=== PATIENT | male | born 1985 | race Hispanic/Latino ===

== ENCOUNTER 2017-06-09 15:28 | Emergency (ER) | payer MEDICAID ==
[2017-06-09 15:44] VITALS: BP 125/90; PULSE 84; RESP 16; O2SAT 98
--- NOTE | 2017-06-09 16:08 | ED PDOC ---
HPI: Psych/Substance Abuse Time Seen by Provider: 06/09/17 15:31 Chief Complaint (Nursing): Psychiatric Evaluation Chief Complaint (Provider): Crisis eval History Per: Patient Additional Complaint(s): 32 yo male, reports a PMH of depression and anxiety, presents to ED calm and cooperative at this time stating he is feeling depressed. Patient also hearing voices, but unsure what they are saying. Patient states he feel like people are after him, and reports that he has not been able to eat or sleep because people have been "messing" with him. Reports intermittent suicidal ideations. Patient hasn't taken his psych medications (unknown names) for "a few years." Pt denies any physical complaints at this time. Denies any homicidal ideations. Past Medical History Reviewed: Nursing Documentation, Vital Signs Vital Signs: Last Vital Signs Temp 9832 F H 06/09/17 15:40 Pulse 84 06/09/17 15:40 Resp 16 06/09/17 15:40 BP 125/90 06/09/17 15:40 Pulse Ox 98 06/09/17 15:40 - Medical History PMH: Anxiety, Back Problems, Depression Denies: Diabetes, Hepatitis, HIV, HTN, Chronic Kidney Disease, Seizures, Sexually Transmitted Disease - Family History Family History: States: Unknown Family Hx - Living Arrangements Living Arrangements: Other - Social History Current smoker - smoking cessation education provided: No Alcohol: Social Drugs: Cannabis, Cocaine, Opiates, Prescription medications - Immunization History Hx Tetanus Toxoid Vaccination: No Hx Influenza Vaccination: No Hx Pneumococcal Vaccination: No - Home Medications Home Medications: Ambulatory Orders Medication Instructions Recorded Polyethylene Glycol 3350 [Miralax] 17 gm PO DAILY #270 ml 08/03/16 - Allergies Allergies/Adverse Reactions: Allergies Allergy/AdvReac Type Severity Reaction Status Date / Time No Known Allergies Allergy Verified 06/09/17 15:40 Review of Systems ROS Statement: Except As Marked, All Systems Reviewed And Found Negative Psych: Positive for: Depression, Suicidal ideation, Other (auditory hallucinations) Physical Exam - Reviewed Nursing Documentation Reviewed: Yes Vital Signs Reviewed: Yes - Physical Exam Appears: Positive for: Well, Non-toxic, No Acute Distress Head Exam: Positive for: ATRAUMATIC, NORMAL INSPECTION, NORMOCEPHALIC Skin: Positive for: Normal Color, Warm, DRY Eye Exam: Positive for: EOMI, Normal appearance, PERRL ENT: Positive for: Normal ENT Inspection Neck: Positive for: Normal, Painless ROM Cardiovascular/Chest: Positive for: Regular Rate, Rhythm Respiratory: Positive for: CNT, Normal Breath Sounds Gastrointestinal/Abdominal: Positive for: Normal Exam, Bowel Sounds, Soft Back: Positive for: Normal Inspection Extremity: Positive for: Normal ROM Neurologic/Psych: Positive for: Alert, Oriented - ECG O2 Sat by Pulse Oximetry: 98 Medical Decision Making Medical Decision Making: No medical complaints offrred. no medical intervention needed at this time. Crisis presented to see and evaluate Pt upon arrival. see notes. As per Dr. Long, Pt deemed cleared for discharge. Concern for malingering/bed seeking behavior. Upon going to speak to Pt at discharge, Pt became upset and screaming at policy writer sales stating, "I can't leave, I need to stay here. How can you send someone out on Xmas. I need help, I want to kill myself if I get discharged." Crisis team presented once again to bedside to speak with Pt. See notes. Pt to be discharged. Security called to bedside to assist in escorting Pt out. Disposition - Clinical Impression Clinical Impression: Depression - Patient ED Disposition Is Patient to be Admitted: No - Disposition Disposition: Routine/Home Disposition Time: 17:48 Condition: STABLE Instructions: Depression (ED) Forms: [facility] (Lao) - POA Present On Arrival: None
[2017-06-09 16:10] VITALS: TEMP 98.2
== END 2017-06-09 17:49 | disposition home or self-care (01) ==
LOC: H.ER 15:28
DX: F32.9 Major depressive disorder, single episode, unspecified (principal); F41.9 Anxiety disorder, unspecified

== ENCOUNTER 2018-09-10 01:05 | Emergency (ER) | payer MEDICAID ==
[2018-09-10 01:05] VITALS: BMI 23.7
--- NOTE | 2018-09-10 02:42 | ED PDOC ---
HPI: Psych/Substance Abuse Time Seen by Provider: 09/10/18 02:01 Chief Complaint (Nursing): Psychiatric Evaluation Chief Complaint (Provider): Psychiatric Evaluation History Per: Patient History/Exam Limitations: no limitations Associated Symptoms: Depression Additional Complaint(s): 33 y/o male with history of depression presents to the ED with depression. Patient reports he has been feeling depressed and wants evaluation. Denies any homicidal or suicidal ideation. Past Medical History Reviewed: Historical Data, Nursing Documentation, Vital Signs Vital Signs: Last Vital Signs Temp 98.9 F 09/10/18 01:41 Pulse 96 H 09/10/18 01:41 Resp 17 09/10/18 01:41 BP 128/82 09/10/18 01:41 Pulse Ox 100 09/10/18 01:41 - Medical History PMH: Anxiety, Back Problems, Depression Denies: Diabetes, Hepatitis, HIV, HTN, Chronic Kidney Disease, Seizures, Sexually Transmitted Disease - Family History Family History: States: Unknown Family Hx - Immunization History Hx Tetanus Toxoid Vaccination: No Hx Influenza Vaccination: No Hx Pneumococcal Vaccination: No - Home Medications Home Medications: Ambulatory Orders Medication Instructions Recorded Famotidine [Pepcid] 20 mg PO BID PRN #15 tab 08/26/18 Ondansetron ODT [Zofran ODT] 1 odt PO BID PRN #15 odt 08/26/18 - Allergies Allergies/Adverse Reactions: Allergies Allergy/AdvReac Type Severity Reaction Status Date / Time No Known Allergies Allergy Verified 08/29/18 15:10 Review of Systems ROS Statement: Except As Marked, All Systems Reviewed And Found Negative Psych: Positive for: Depression Physical Exam - Reviewed Nursing Documentation Reviewed: Yes Vital Signs Reviewed: Yes - Physical Exam Appears: Positive for: Well, Non-toxic, No Acute Distress Head Exam: Positive for: ATRAUMATIC, NORMAL INSPECTION, NORMOCEPHALIC Skin: Positive for: Normal Color, Warm, DRY Eye Exam: Positive for: EOMI, Normal appearance, PERRL ENT: Positive for: Normal ENT Inspection Neck: Positive for: Normal, Painless ROM Cardiovascular/Chest: Positive for: Regular Rate, Rhythm. Negative for: Murmur Respiratory: Positive for: Normal Breath Sounds. Negative for: Respiratory Distress Gastrointestinal/Abdominal: Positive for: Normal Exam, Soft. Negative for: Tend erness Back: Positive for: Normal Inspection Extremity: Positive for: Normal ROM. Negative for: Pedal Edema, Deformity Neurological/Psych: Positive for: Awake, Alert, Normal Tone, Oriented (x3). Negative for: Motor/Sensory Deficits - ECG O2 Sat by Pulse Oximetry: 100 (RA) Pulse Ox Interpretation: Normal Medical Decision Making Medical Decision Making: Time: 02:02 Impression: 33 y/o with depression Initial Plan: * Crisis evaluation * Urine drug screen 03:12 Patient cleared by crisis and stable for discharge home. Diagnosis is opiate use disorder by Dr. Greene. Scribe Attestation: Documented by Tomas Wray, acting as a scribe Tiara Denny MD Provider Scribe Attestation: All medical record entries made by the Scribe were at my direction and personally dictated by me. I have reviewed the chart and agree that the record accurately reflects my personal performance of the history, physical exam, medical decision making, and the department course for this patient. I have also personally directed, reviewed, and agree with the discharge instructions and disposition Disposition - Clinical Impression Clinical Impression: Opioid use disorder - Patient ED Disposition Is Patient to be Admitted: No - Disposition Disposition: Routine/Home Disposition Time: 03:12 Condition: STABLE Additional Instructions: FARZANA RECINOS, thank you for letting us take care of you today. Your provider was Cesar Denny MD and you were treated for PSYCH EVAL. The emergency medical care you received today was directed at your acute symptoms. If you were prescribed any medication, please fill it and take as directed. It may take several days for your symptoms to resolve. Return to the Emergency Department if your symptoms worsen, do not improve, or if you have any other problems. Please contact your doctor or call one of the physicians/clinics you have been referred to that are listed on the Patient Visit Information form that is included in your discharge packet. Bring any paperwork you were given at discharge with you along with any medications you are taking to your follow up visit. Our treatment cannot replace ongoing medical care by a primary care provider outside of the emergency department. Thank you for allowing the [facility] team to be part of your care today. If you had an X-Ray or CT scan: A Radiologist will review the ED reading if any change in treatment is needed we will contact you. If you had a blood, urine, or wound culture: It will take several days for the results, if any change in treatment is needed we will contact you. If you had an STI test: It will take 48 hours for the results. Please call after 1 week if you have not heard back. Instructions: Drug Abuse Treatment Forms: [employer] (Latvian)
[2018-09-10 05:59] VITALS: BP 128/86; PULSE 79; RESP 16; TEMP 98.3; O2SAT 99
== END 2018-09-10 05:59 | disposition home or self-care (01) ==
LOC: H.ER 01:05
DX: F11.10 Opioid abuse, uncomplicated (principal)